=== PATIENT | male | born 1950 | race Caucasian/White ===

== ENCOUNTER 2020-07-01 12:42 | Emergency (ER) | payer OTHER ==
[~2020-07-01] VITALS: Ht 188 cm; Wt 119.3 kg
[2020-07-01 12:53] VITALS: Ht 188 cm; Wt 119.3 kg
[2020-07-01 16:03] VITALS: BP 124/72
== END 2020-07-01 16:03 | disposition home or self-care (01) ==
LOC: ED 12:42
DX: L03.115 Cellulitis of right lower limb (principal)
CPT/HCPCS: 90715; Q0092

== ENCOUNTER 2020-07-06 18:17 | Emergency (ER) | payer OTHER ==
[~2020-07-06] VITALS: Ht 188 cm; Wt 118.4 kg
[2020-07-06 18:27] VITALS: BP 140/69; Ht 188 cm; Wt 118.4 kg
== END 2020-07-06 19:49 | disposition home or self-care (01) ==
LOC: ED 18:17
DX: S80.811D Abrasion, right lower leg, subsequent encounter (principal); L03.115 Cellulitis of right lower limb; X58.XXXD Exposure to other specified factors, subsequent encounter
CPT/HCPCS: J0696